=== PATIENT | female | born 1945 | race Caucasian/White ===

== ENCOUNTER 2020-04-28 16:44 | Emergency (ER) | payer OTHER ==
[~2020-04-28] VITALS: Ht 167.6 cm; Wt 59.0 kg
[2020-04-28 20:37] VITALS: BP 160/68
[2020-04-28] MEDS ORDERED: TETANUS-DIPTH-ACEL PERTUSSIS 0.5ML SYR Tdap IM ONE (21:00)
== END 2020-04-28 22:05 | disposition home or self-care (01) ==
LOC: ER 16:52
DX: S01.01XA Laceration without foreign body of scalp, initial encounter (principal); W19.XXXA Unspecified fall, initial encounter; Y93.89 Activity, other specified; Y92.89 Other specified places as the place of occurrence of the external cause; Y99.8 Other external cause status
CPT/HCPCS: 12002; 70450; 72125; 90471; 90715

== ENCOUNTER 2020-06-09 11:22 | Inpatient (IN) | payer OTHER ==
[~2020-06-09] VITALS: Ht 170.2 cm; Wt 67.0 kg
[2020-06-09] MEDS ORDERED: methylPREDNISolone SOD SUCC 125 MG/2 ML VL IV ONE (15:45)
[2020-06-09 16:50] LABS: Albumin 3.8 g/dL (3.4-5.0); Anion Gap 9 (5-15); Blood Urea Nitrogen 20 mg/dL (7-18); Calcium 8.4 mg/dL (8.5-10.1); Carbon Dioxide 22 mmol/L (21-32); Chloride 104 mmol/L (98-107); Glucose 114 mg/dL (74-106); Potassium 3.9 mmol/L (3.5-5.1); Sodium 135 mmol/L (136-145)
[2020-06-09 16:54] LABS: Alanine Aminotransferase 24 U/L (13-56); Alkaline Phosphatase 34 U/L (45-117); Aspartate Aminotransferase 42 U/L (15-37); Bilirubin, Total 0.4 mg/dL (0.2-1.0); GFR African American 66 mL/min; GFR Non-African American 55 mL/min; Total Protein 7.9 g/dL (6.4-8.2)
[2020-06-09 16:57] LABS: Basophils # (auto) 0 10 ^3/uL (0-0.2); Basophils % (auto) 0.4 % (0.0-2.0); Eosinophils # (auto) 0 10 ^3/uL (0-0.8); Hematocrit 37.2 % (36.0-46.0); Hemoglobin 12.7 g/dL (12.2-16.2); Lymphocytes # (auto) 0.4 10 ^3/uL (0.4-5.4); Lymphocytes % (auto) 12.5 % (10.0-50.0); Mean Corpuscular Hemoglobin 34.5 pg (28.0-32.0); Mean Corpuscular Hgb Conc. 34.1 g/dL (32.0-36.0); Mean Corpuscular Volume 101.1 fL (80.0-100.0); Monocytes # (auto) 0.3 10 ^3/uL (0-1.3); Monocytes % (auto) 7.3 % (0.0-12.0); Neutrophils # (auto) 2.8 10 ^3/uL (1.6-8.6); Neutrophils % (auto) 79.8 % (37.0-80.0); Platelet Count (auto) 126 10^3/uL (140-450); Red Blood Cells 3.68 10^6/uL (4.0-5.20); Red Cell Distribution Width 13.8 % (11.8-14.3); White Blood Cell 3.5 10^3/uL (4.4-10.8)
[2020-06-09 17:16] LABS: BUN/Creatinine Ratio 19.2
[2020-06-09] MEDS ORDERED: SODIUM CHLORIDE 0.9% 1,000 ML IV ONE (18:45)
[2020-06-09] MEDS ORDERED: MORPHINE SULF INJ 2 MG/ML SYRINGE 1ML IV PRN (18:45)
[2020-06-09] MEDS ORDERED: NITROGLYCERIN 0.4 MG SL TAB SL PRN (18:45)
[2020-06-09] MEDS ORDERED: DEXTROSE (50%) 50ML SYRG IV PRN (18:45)
[2020-06-09] MEDS ORDERED: ACETAMINOPHEN 325 MG TAB PO PRN (20:45)
[2020-06-10] MEDS: ACCU-CHEK COMFORT CURVE STRIP VI SCH ×4 (00:25→17:06)
[2020-06-10] MEDS: ASCORBIC ACID 500 MG TAB PO SCH ×2 (00:25→10:50)
[2020-06-10] MEDS: InsuLIN REG 1unit/0.01ml Soln (100units/ml) SC SCH ×4 (00:33→17:00)
[2020-06-10 00:40] VITALS: BP 105/64
[2020-06-10 05:14] VITALS: BP 99/60
[2020-06-10 07:33] LABS: BUN/Creatinine Ratio 27.5; Calcium 8.2 mg/dL (8.5-10.1); Potassium 3.5 mmol/L (3.5-5.1)
[2020-06-10 07:34] LABS: Basophils # (auto) 0 10 ^3/uL (0-0.2); Eosinophils # (auto) 0 10 ^3/uL (0-0.8); Hematocrit 35.4 % (36.0-46.0); Hemoglobin 11.9 g/dL (12.2-16.2); Lymphocytes # (auto) 0.4 10 ^3/uL (0.4-5.4); Monocytes # (auto) 0.1 10 ^3/uL (0-1.3); Red Cell Distribution Width 14.1 % (11.8-14.3)
[2020-06-10 07:36] LABS: Basophils % (auto) 0.2 % (0.0-2.0); Lymphocytes % (auto) 12.8 % (10.0-50.0); Mean Corpuscular Hemoglobin 34.6 pg (28.0-32.0); Mean Corpuscular Hgb Conc. 33.7 g/dL (32.0-36.0); Mean Corpuscular Volume 102.6 fL (80.0-100.0); Monocytes % (auto) 3.6 % (0.0-12.0); Neutrophils # (auto) 2.9 10 ^3/uL (1.6-8.6); Neutrophils % (auto) 83.4 % (37.0-80.0); Nucleated Red Blood Cells % 0.5 %; Platelet Count (auto) 129 10^3/uL (140-450); Red Blood Cells 3.45 10^6/uL (4.0-5.20); White Blood Cell 3.5 10^3/uL (4.4-10.8)
[2020-06-10 08:00] VITALS: BP 105/61
[2020-06-10] MEDS ORDERED: ZINC SULFATE 220mg CAP or TAB PO SCH (10:00)
[2020-06-10] MEDS ORDERED: CHOLECALCIFEROL (VITD3) 2,000 UNIT CAP PO SCH (10:00)
[2020-06-10] MEDS ORDERED: AZITHROMYCIN 500MG/ 250ML 250 ML IV SCH (10:00)
[2020-06-10] MEDS ORDERED: DexAMETHasone INJECTION 10 MG in D5W 5% 50 ML IV SCH (10:00)
[2020-06-10] MEDS ORDERED: ALBUTEROL SULF HFA 90MCG INH 200DOSE IN SCH (14:00)
[2020-06-10 17:33] VITALS: BP 105/61
== END 2020-06-10 19:39 | disposition home or self-care (01) | DRG 177 ==
LOC: ER 11:22 → OVERFLOW 18:46 → TELE-WESTW 23:38
PROVIDERS: ADMIT Internal Medicine; ATTEND Internal Medicine
DX: U07.1 COVID-19 (principal); J12.89 Other viral pneumonia; N17.9 Acute kidney failure, unspecified; M79.10 Myalgia, unspecified site; N18.30 Chronic kidney disease, stage 3 unspecified; Z90.710 Acquired absence of both cervix and uterus; E78.5 Hyperlipidemia, unspecified
CPT/HCPCS: 36415; 70450; 71045; 80048; 80053; 82728; 82962; 84484; 85025; 85379; 86141; 87426; 93005; 96365; G0378; J1100; J1815; J7060

== ENCOUNTER 2024-12-17 13:18 | Inpatient (IN) | payer OTHER ==
[~2024-12-17] VITALS: Ht 170.2 cm; Wt 69.0 kg
--- NOTE | 2024-12-17 13:37 | ED.PDOC ---
History of Present Illness HPI Comments 79 year old female with a history of high lipids was BIB Daughter for the c/c of Generalized Weakness with associated N/V/D, and Decreased appetite. Daughter states that pt has been feeling weak for the past few days, but has since worsened today with no alleviating factors at this time. Pt notes of prior Ca taract, Hernia Repair, and Hysterectomy Surgeries. No other symptoms or modifying factors reported at this time. 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 History Family History Family History: Reviewed,noncontributory to illness, No family hx of Cancer, No family hx of DM, No family hx of Heart danika, No family hx of HTN, No family hx ofKidney danika, No family hx of Liver danika, No family hx of Lung danika, No family hx of Stroke Social History Smoker: Non-Smoker Alcohol: Denies ETOH Use Drugs: Denies Drug Use Lives In: Home Constitutional: reports: weakness; denies: chills, diaphoresis, fatigue, fever, malaise, sweats, others EENTM: denies: blurred vision, double vision, ear bleeding, ear discharge, ear drainage, ear pain, ear ringing, eye pain, eye redness, hearing loss, mouth pain, mouth swelling, nasal discharge, nose bleeding, nose congestion, nose pain, photophobia, tearing, throat pain, throat swelling, voice changes, others Respiratory: denies: cough, hemoptysis, orthopnea, SOB at rest, shortness of breath, SOB with excertion, stridor, wheezing, others Cardiovascular: denies: chest pain, dizzy spells, diaphoresis, Dyspnea on exertion, edema, irregular heart beat, left arm pain, lightheadedness, palpitations, PND, syncope, others Gastrointestinal: reports: nausea, vomiting; denies: abdomen distended, abdominal pain, blood streaked bowels, constipated, diarrhea, dysphagia, difficulty swallowing, hematemesis, melena, poor appetite, poor fluid intake, rectal bleeding, rectal pain, others Genitourinary: denies: abnormal vagina bleeding, burning, dyspareunia, dysuria, flank pain, frequency, hematuria, incontinence, pain, , vagina discharge, urgency, others Neurological: denies: dizziness, fainting, headache, left sided numbness, left sided weakness, numbness, paresthesia, pre-existing deficit, right sided numbness, right sided weakness, seizure, speech problems, tingling, tremors, weakness, others Musculoskeletal: denies: back pain, gout, joint pain, joint swelling, muscle pain, muscle stiffness, neck pain, others Integumetry: denies: bruises, change in color, change in hair/nails, dryness, laceration, lesions, lumps, rash, wounds, others Allergic/Immunocompromised: denies: Difficulty Healing, Frequent Infections, Hives, Itching, others Hematologic/Lymphatic: denies: anemia, blood clots, easy bleeding, easy bruising, swollen glands, others Endocrine: denies: excessive hunger, excessive sweating, excessive thirst, excessive urination, flushing, intolerance to cold, intolerance to heat, unexplained weight gain, unexplained weight loss, others Psychiatric: denies: anxiety, bipolar disorder, depression, hopeless, panic disorder, schizophrenia, sleepless, suicidal, others All Other Systems: Reviewed and Negative Physical Exam General Appearance: Moderate Distress HEENT: Normal ENT Inspection, Pharynx Normal, TMs Normal Neck: Full Range of Motion, Non-Tender, Normal, Normal Inspection Respiratory: Chest Non-Tender, Lungs Clear, No Accessory Muscle Use, No Respiratory Distress, Normal Breath Sounds Cardiovascular: No Edema, No JVD, No Murmur, No Gallop, Normal Peripheral Pulses, Regular Rate/Rhythm Breast Exam: Deferred Gastrointestinal: Diffuse, No Organomegaly, No Pulsatile Mass, Normal Bowel Sounds, Soft, Tenderness Genitalia: Deferred Pelvic: Deferred Rectal: Deferred Extremities: No calf tenderness, Normal capillary refill, No pedal edema Musculoskeletal : Apperance: Normal Neurologic: Alert, dredging inspector II-XII nml as Tested, Motor Weakness, Normal Affect, Normal Mood, No Sensory Deficits Cerebellar Function: Normal Reflexes: Normal Skin: Dry, Normal Color, Warm Lymphatic: No Adenopathy Was a procedure done? Was a procedure done?: No EKG EKG : Pulse Rate (adult): 102 [place]mage: Normal Cardiac Rhythm: ST Block: None ST: Nonsp Differential Dx Considerations may include: Generalized weakness, electrolyte imbalance, UTI, dehydration, diverticulitis, cholelithiasis X-Ray, Labs, Meds, VS Vital Signs Date Time Temp Pulse Resp B/P (MAP) Pulse Ox O2 Delivery O2 Flow Rate FiO2 12/17/24 15:11 92 18 92 Room Air* 0 21 12/17/24 15:10 98.9 92 18 100/63 (75) 92 98.9 12/17/24 13:50 99.3 111 16 131/63 (85) 99 99.3 12/17/24 13:45 102 Lab Test 12/17/24 14:36 12/17/24 13:31 Range/Units White Blood Count Pending Red Blood Count Pending Hemoglobin Pending Hematocrit Pending Mean Corpuscular Volume Pending Mean Corpuscular Hemoglobin Pending Mean Corpuscular Hemoglobin Concent Pending Red Cell Distribution Width Pending Platelet Count Pending Mean Platelet Volume Pending Neutrophils (%) (Auto) Pending Lymphocytes (%) (Auto) Pending Monocytes (%) (Auto) Pending Basophils (%) (Auto) Pending Neutrophils # (Auto) Pending Lymphocytes # (Auto) Pending Monocytes # (Auto) Pending Sodium Level 138 136-145 mmol/L Potassium Level 3.8 3.5-5.1 mmol/L Chloride Level 102 98-107 mmol/L Carbon Dioxide Level 23 20-31 mmol/L Anion Gap 13 5-15 Blood Urea Nitrogen 18 9-23 mg/dL Creatinine 1.28 H 0.550-1.02 mg/dL Glomerular Filtration Rate Calc 42 >90 mL/min BUN/Creatinine Ratio 14.1 10.0-20.0 Serum Glucose 159 H 74-106 mg/dL Calcium Level 9.9 8.7-10.4 mg/dL Total Bilirubin 0.7 0.2-1.0 mg/dL Aspartate Amino Transferase (AST) 21 <34 U/L Alanine Aminotransferase (ALT) 11 7-40 U/L Alkaline Phosphatase 43 L 46-116 U/L Total Protein 8.1 5.7-8.2 g/dL Albumin 5.2 H 3.2-4.8 g/dL POC Glucose 157 H 70-106 mg/dl Current Medications Medications (Trade) Dose Ordered Sig/Brianda Route Start Time Stop Time Status Last Admin Sodium Chloride 1,000 ml @ 1,000 mls/hr Q1H ONCE IV 12/17/24 13:45 12/17/24 14:44 DC 12/17/24 15:07 IMPRESSION: Cholelithiasis, hydropic/ distended gallbladder with evidence of choledocholithiasis and pericholecystic stranding, concerning for cholecystitis. Recommend GI consultation, MRCP and HIDA scan to further evaluate biliary obstruction/cholecystitis. The sigmoid colon is folded upon itself a single air-fluid level. No evidence for bowel obstruction. Recommend GI consultation to exclude any type of obstructive process. Colonic diverticular disease. Atherosclerotic disease. Other findings as described. We ordered C diff testing secondary to the diarrhea The patient is being admitted at this time The chemistry panel is within normal limits The CBC is pending at this time IV Hep-Lock was established and the patient was given a bolus of normal saline The patient was given morphine 4 mg IV push for the pain The patient was given Zofran 4 mg IV push for the nausea The patient is being admitted at this time Images Reviewed?: Images reviewed and evaluated by me Time of 1ST Reevaluation: 14:04 Reevaluation 1ST: Unchanged Patient Education/Counseling: Diagnosis, Treatment, Prognosis Family Education/Counseling: Diagnosis, Treatment, Prognosis SEPSIS Sepsis Screen Physician Orders Urinalysis (12/17/24 13:36) Heplock Iv (12/17/24 13:36) Gymnastic Teacher (12/17/24 13:36) Blood Pressure (12/17/24 13:36) Pulse Oximetry (12/17/24 13:36) Electrocardigram (12/17/24 13:36) Ct Ab Pel Wo Con-No Oral Or Iv (12/17/24 13:36) Clostridium Difficile Toxin (12/17/24 13:44) Vital Signs Date Time Temp Pulse Resp B/P (MAP) Pulse Ox O2 Delivery O2 Flow Rate FiO2 12/17/24 15:11 92 18 92 Room Air* 0 21 12/17/24 15:10 98.9 92 18 100/63 (75) 92 98.9 12/17/24 13:50 99.3 111 16 131/63 (85) 99 99.3 12/17/24 13:45 102 Laboratory Tests Test 12/17/24 14:36 White Blood Count Pending Medications Medications Dose Ordered Sig/Brianda Route Start Time Stop Time Status Last Admin Dose Admin Sodium Chloride 1,000 ml @ 1,000 mls/hr Q1H ONCE IV 12/17/24 13:45 12/17/24 14:44 DC 12/17/24 15:07 Departure 1 Departure Time of Disposition: 17:13 Impression: Primary Impression: Intractable abdominal pain Additional Impressions: Cholelithiasis Qualified Codes: K80.00 - Calculus of gallbladder with acute cholecystitis without obstruction Generalized weakness Disposition: ADMITTED INPATIENT Admit to: Med Surg Condition: Fair e-Prescriptions Unable to Obtain Active Prescriptions or Reported Meds Critical Care Note Critical Care Time?: No Stability Stability form required: Yes Unstable for transfer: ED Physician Assesment (Clinical assesment) Heart Score Heart Score: Heart Score Response (Comments) Value History N/A 0 EKG N/A 0 Age N/A 0 Risk Factors N/A 0 Troponin N/A 0 Total 0 I personally scribed for ESTER STUBBS MD (NINA) on 12/17/24 at 13:37. Electronically submitted by Ellis Lira ([employer]). I personally scribed for ESTER STUBBS MD (NINA) on 12/17/24 at 14:42. Electronically submitted by Ellis Lira ([employer]). I personally scribed for ESTER STUBBS MD ([email or web address]) on 12/17/24 at 15:01. Electronically submitted by Ellis Lira ([employer]). ESTER STUBBS MD Dec 17, 2024 13:37
--- NOTE | 2024-12-17 14:40 | DVH ---
Indication: pain and weakness Technique: CT axial images of the abdomen and pelvis are obtained without contrast. Coronal and sagit varinder reformats were obtained. Radiation Dose Information: CTDI volume is 6.55 mGy. Dose-length product is 343.35 mGy*cm Comparison: None FINDINGS: There is limited interpretation of the abdomen and pelvis without administration of intravenous contr ast. The lung bases demonstrate atelectasis. Coronary artery calcification disease. Adrenal glands, spleen, pancreas unremarkable in shape. Cholelithiasis. 3 mm calculus in the distal CBD region. 3 mm calculus near the proximal cBD/cystic d uct region. Distended gallbladder with mild pericholecystic stranding. Liver unremarkable in shape. Kidneys demonstrate hydronephrosis. No nephrolithiasis. Stomach is partially distended. Small bowel loops are normal in caliber. Colonic diverticular disease. No secondary signs for appendicitis. The sigmoid colon is folded upon i tself but there is no evidence for bowel obstruction. Aortic atherosclerotic disease. Bladder distended. No inguinal lymphadenopathy. No inguinal lymphadenopathy. Moderate thoracolumbar degenerative disc disease. IMPRESSION: Cholelithiasis, hydropic/ distended gallbladder with evidence of choledocholithiasis and pericholecys tic stranding, concerning for cholecystitis. Recommend GI consultation, MRCP and HIDA scan to furthe r evaluate biliary obstruction/cholecystitis. The sigmoid colon is folded upon itself a single air-fluid level. No evidence for bowel obstruction. Recommend GI consultation to exclude any type of obstructive process. Colonic diverticular disease. Atherosclerotic disease. Other findings as described.
[2024-12-17] MEDS: SODIUM CHLORIDE 0.9% 1,000 ML IV ONE (15:07)
[2024-12-17 15:11] VITALS: PULSE 92; RESP 18; O2SAT 92
[2024-12-17 15:18] LABS: Alanine Aminotransferase 11 U/L (7-40); Albumin 5.2 g/dL (3.2-4.8); Alkaline Phosphatase 43 U/L (46-116); Anion Gap 13 (5-15); Aspartate Aminotransferase 21 U/L (<34); BUN/Creatinine Ratio 14.1 (10.0-20.0); Blood Urea Nitrogen 18 mg/dL (9-23); Calcium 9.9 mg/dL (8.7-10.4); Carbon Dioxide 23 mmol/L (20-31); Chloride 102 mmol/L (98-107); Glucose 159 mg/dL (74-106); Potassium 3.8 mmol/L (3.5-5.1); Sodium 138 mmol/L (136-145); Total Protein 8.1 g/dL (5.7-8.2)
[2024-12-17 15:19] LABS: Bilirubin, Total 0.7 mg/dL (0.2-1.0)
[2024-12-17] MEDS ORDERED: MORPHINE SULFATE INJ 2 MG/ml SYRG IV PRN ×2 (17:00)
[2024-12-17] MEDS ORDERED: NITROGLYCERIN 0.4 MG SL TAB SL PRN (17:00)
[2024-12-17] MEDS: SODIUM CHLORIDE 0.9% 1,000 ML IV SCH (17:00)
[2024-12-17] MEDS ORDERED: HYDROcodone-ACET 5/325MG TAB PO PRN (17:00)
[2024-12-17 17:10] LABS: Basophils # (auto) 0 10 ^3/uL (0-0.2); Basophils % (auto) 0.3 % (0.0-2.0); Eosinophils # (auto) 0 10 ^3/uL (0-0.8); Hemoglobin 12.4 g/dL (12.2-16.2); Lymphocytes # (auto) 0.6 10 ^3/uL (0.4-5.4); Lymphocytes % (auto) 8.7 % (10.0-50.0); Mean Corpuscular Hemoglobin 34.9 pg (28.0-32.0); Mean Corpuscular Hgb Conc. 34.4 g/dL (32.0-36.0); Mean Corpuscular Volume 101.6 fL (80.0-100.0); Monocytes # (auto) 0.8 10 ^3/uL (0-1.3); Monocytes % (auto) 10.9 % (0.0-12.0); Neutrophils # (auto) 5.7 10 ^3/uL (1.6-8.6); Neutrophils % (auto) 80.1 % (37.0-80.0); Nucleated Red Blood Cells % 0.1 %; Platelet Count (auto) 231 10^3/uL (140-450); Red Blood Cells 3.55 10^6/uL (4.0-5.20); Red Cell Distribution Width 13.9 % (11.8-14.3); White Blood Cell 7.1 10^3/uL (4.4-10.8)
--- NOTE | 2024-12-17 19:55 | DVH ---
Procedure: NM NM HIDA SCAN Exam Date: 12/17/2024 05:53 PM Clinical History: Incidental finding of cholelithiasis/acute cholecystitis Comparison Study: None Nuclear Medicine Hepatobiliary Scan. Technique: Following the intravenous administration of 5.1 mCi of technetium 99m labeled Choletec multiple plana r abdominal planar images were obtained in anterior projection in 5 minute intervals for45 minutes . Right lateral images were obtained at 45 minutes after injection. Findings: The liver appears grossly normal in size. There is no abnormal persistence of the cardiac or blood po ol activity. There is prompt visualization of the gallbladder and excretion of activity into the smal l bowel. Impression: 1. Unremarkable hepatobiliary study without evidence of acute cholecystitis. 2. Gallbladder and small bowel visualized by 60 minutes.
[2024-12-17 23:37] VITALS: BP 95/65; PULSE 82; RESP 17; TEMP 100.5; O2SAT 96
[2024-12-18] VITALS (9 sets, daily range): BP systolic 108–128; BP diastolic 55–74; PULSE 65–91; RESP 16–17; TEMP 97–101; O2SAT 90–96
--- NOTE | 2024-12-18 00:22 | DVHHP2 ---
PA OH SODA WORKER 12/18/24 0022: History of Present Illness Reason for Visit: Generalized weakness History of Present Illness 79-year-old female presents with complaints of generalized weakness. Also endorsing abdominal pain with nausea/vomiting, diarrhea. Patient has not been able to tolerate oral intake. At this time there are no complaints of fevers, chills, dizziness, shortness of breath, chest pain, palpitations, leg swelling. Patient admitted for further evaluation and treatment Cardiovascular: hyperipidemia ALCOHOL: none Drugs: None Lives: with Family Review of Systems Constitutional: Yes: Weakness; No: Fever, Chills, Sweats, Malaise, Other Eyes: No: Pain, Vision change, Conjunctivae inflammation, Eyelid inflammation, Other, Redness Respiratory: No: Cough, Dry, Shortness of breath, SOB with excertion, Wheezing, Hemoptysis, Pleuritic Pain, Sputum, Wheezing, Other Cardiovascular: No: Chest Pain, Palpitations, Orthopnea, Paroxysmal Noc. Dyspnea, Edema, Lt Headedness, Other Gastrointestinal: Nausea, Vomiting, Abdominal Pain, Diarrhea; No: Constipation, Melena, Hematochezia, Other Genitourinary: No Dysuria, No Frequency, No Incontinence, No Hematuria, No Retention, No Other Musculoskeletal: No: other, neck pain, shoulder pain, arm pain, back pain, hand pain, leg pain, foot pain Skin: No: Rash, Lesions, Jaundice, Bruising, Other Neurological: No: Weakness, Numbness, Incoordination, Change in speech, Confusion, Seizures, Other Allergies: Coded Allergies: Sulfa Antibiotics (Verified Allergy, Unknown, 12/17/24) Medications Current Medications Medications Dose Ordered Sig/Brianda Route Start Time Stop Time Status Last Admin Dose Admin Sodium Chloride 1,000 ml @ 120 mls/hr Q8H20M IV 12/17/24 17:00 Acetaminophen/ Hydrocodone Bitart 1 tab Q4HP PRN PO 12/17/24 17:00 Ondansetron HCl 4 mg Q4HP PRN IV 12/17/24 17:00 Enoxaparin Sodium 40 mg DAILY SC 12/18/24 10:00 Acetaminophen 650 mg Q6HP PRN PO 12/17/24 17:00 Morphine Sulfate 2 mg Q4HPRN PRN IV 12/17/24 17:00 Nitroglycerin 0.4 mg Q5MINP PRN SL 12/17/24 17:00 Morphine Sulfate 2 mg Q30M PRN IV 12/17/24 17:00 Exam Vital Signs Vital Signs Date Time Temp Pulse Resp B/P (MAP) Pulse Ox O2 Delivery O2 Flow Rate FiO2 12/17/24 20:10 100 18 132/75 (94) 96 12/17/24 15:11 Room Air* 0 21 12/17/24 15:10 98.9 98.9 General Appearance: Alert, Oriented X3, Cooperative, mild distress HEENT: Atraumatic, PERRLA, EOMI Respiratory: Clear to auscultation, Normal air movement Cardiovascular: Regular rate, Normal S1, Normal S2 Abdominal: Normal bowel sounds, Soft, No tenderness Extremities: No clubbing, No cyanosis, No edema Skin: No rashes Neuro: Normal speech Psych/Mental Status: Mental status NL, Mood NL Labs/Xrays Labs Test 12/17/24 14:36 12/17/24 13:31 Range/Units White Blood Count 7.1 4.4-10.8 10^3/uL Red Blood Count 3.55 L 4.0-5.20 10^6/uL Hemoglobin 12.4 12.2-16.2 g/dL Hematocrit 36.0 36.0-46.0 % Mean Corpuscular Volume 101.6 H 80.0-100.0 fL Mean Corpuscular Hemoglobin 34.9 H 28.0-32.0 pg Mean Corpuscular Hemoglobin Concent 34.4 32.0-36.0 g/dL Red Cell Distribution Width 13.9 11.8-14.3 % Platelet Count 231 140-450 10^3/uL Mean Platelet Volume 8.6 6.9-10.8 fL Neutrophils (%) (Auto) 80.1 H 37.0-80.0 % Lymphocytes (%) (Auto) 8.7 L 10.0-50.0 % Monocytes (%) (Auto) 10.9 0.0-12.0 % Eosinophils (%) (Auto) 0.0 0.0-7.0 % Basophils (%) (Auto) 0.3 0.0-2.0 % Neutrophils # (Auto) 5.7 1.6-8.6 10 ^3/uL Lymphocytes # (Auto) 0.6 0.4-5.4 10 ^3/uL Monocytes # (Auto) 0.8 0-1.3 10 ^3/uL Eosinophils # (Auto) 0 0-0.8 10 ^3/uL Basophils # (Auto) 0 0-0.2 10 ^3/uL Nucleated Red Blood Cells 0.1 % Sodium Level 138 136-145 mmol/L Potassium Level 3.8 3.5-5.1 mmol/L Chloride Level 102 98-107 mmol/L Carbon Dioxide Level 23 20-31 mmol/L Anion Gap 13 5-15 Blood Urea Nitrogen 18 9-23 mg/dL Creatinine 1.28 H 0.550-1.02 mg/dL Glomerular Filtration Rate Calc 42 >90 mL/min BUN/Creatinine Ratio 14.1 10.0-20.0 Serum Glucose 159 H 74-106 mg/dL Calcium Level 9.9 8.7-10.4 mg/dL Total Bilirubin 0.7 0.2-1.0 mg/dL Aspartate Amino Transferase (AST) 21 <34 U/L Alanine Aminotransferase (ALT) 11 7-40 U/L Alkaline Phosphatase 43 L 46-116 U/L Total Protein 8.1 5.7-8.2 g/dL Albumin 5.2 H 3.2-4.8 g/dL POC Glucose 157 H 70-106 mg/dl Assessment/Plan Assessment/Plan Abdominal Pain Cholelithiasis r/o Cholecystitis Diarrhea r/o CDIFF Plan Admit to telemetry Consult gastroenterology. HIDA scan. Clear liquid diet IVF. IV ABX Stool for CDIFF, leukocytes DVT ppx lovenox Plan discussed with: Patient, Daughter Date of Service: Dec 18, 2024 Billing Provider: POORNIMA CARRIZALES MD Common Visit Codes: NOT BILLABLE POORNIMA CARRIZALES MD 12/18/24 1759: Review of Systems Allergies: Coded Allergies: Sulfa Antibiotics (Verified Allergy, Unknown, 12/17/24) PA OH NP Dec 18, 2024 00:22 POORNIMA CARRIZALES MD Dec 18, 2024 17:59
[2024-12-18] MEDS: ACETAMINOPHEN 325 MG TAB PO PRN (00:52)
--- NOTE | 2024-12-18 04:39 | ECG ---
[facility] Test Date: 2024-12-17 Test Time: 13:38:32 Pat Name: EDILBERTO CASTLE [facility]: [facility] Gender: F Cycle Analyst: JAZMINE : 1945 Requested By: ESTER STUBBS Order Number: [id number] Reading MD: Isiah Branch Measurements Intervals [place] Rate: 102 P: 54 NC: 134 QRS: 7 QRSD: 88 T: 68 QT: 342 QTc: 446 Interpretive Statements Sinus tachycardia Abnormal R-wave progression, early transition ST depr, consider ischemia, anterolateral lds Electronically Signed On 12-18-2024 22:55:21 PDT by Isiah Branch Please click the below link to view image of tracing.
[2024-12-18 07:03] LABS: Basophils # (auto) 0 10 ^3/uL (0-0.2); Eosinophils # (auto) 0 10 ^3/uL (0-0.8); Hemoglobin 10.7 g/dL (12.2-16.2); Lymphocytes # (auto) 0.9 10 ^3/uL (0.4-5.4); Mean Corpuscular Hgb Conc. 34.3 g/dL (32.0-36.0)
[2024-12-18 07:05] LABS: Basophils % (auto) 0.2 % (0.0-2.0); Eosinophils % (auto) 0.1 % (0.0-7.0); Hematocrit 31.4 % (36.0-46.0); Lymphocytes % (auto) 14.4 % (10.0-50.0); Mean Corpuscular Hemoglobin 34.7 pg (28.0-32.0); Mean Corpuscular Volume 101.2 fL (80.0-100.0); Neutrophils # (auto) 4.6 10 ^3/uL (1.6-8.6); Neutrophils % (auto) 70.3 % (37.0-80.0); Platelet Count (auto) 179 10^3/uL (140-450); Red Cell Distribution Width 14.2 % (11.8-14.3); White Blood Cell 6.5 10^3/uL (4.4-10.8)
[2024-12-18 07:06] LABS: Alanine Aminotransferase 11 U/L (7-40); Anion Gap 11 (5-15); BUN/Creatinine Ratio 19.8 (10.0-20.0); Blood Urea Nitrogen 18 mg/dL (9-23); Carbon Dioxide 24 mmol/L (20-31); Chloride 105 mmol/L (98-107); Sodium 140 mmol/L (136-145); Total Protein 6.9 g/dL (5.7-8.2)
[2024-12-18 07:07] LABS: Albumin 4.4 g/dL (3.2-4.8); Aspartate Aminotransferase 24 U/L (<34); Bilirubin, Total 0.6 mg/dL (0.2-1.0)
[2024-12-18 07:08] LABS: Alkaline Phosphatase 34 U/L (46-116); Calcium 8.3 mg/dL (8.7-10.4); Glucose 118 mg/dL (74-106); Potassium 3.5 mmol/L (3.5-5.1)
[2024-12-18] MEDS: ENOXAPARIN SOD 40 MG/0.4 ML SYRINGE SC SCH (10:04)
--- NOTE | 2024-12-18 13:27 | DVHINCON2 ---
GI Consult Consult Note GI consult note Date of Consultation: 12/18/2024 Chief Complaint: Diarrhea rule out C diff Referring Physician: Dr. Ricks H&P: 79-year-old female presented to ER with complains of generalized weakness Patient also complaining of nausea vomiting and diarrhea. Patient has severe diarrhea per patient and daughter at bedside giving history, for the last three days, multiple episodes. Denies melena or red blood in stool. No abdominal pain Patient was on a recent road trip to [place]. But no family members are sick at this time Denies recent antibiotic use Last colonoscopy more than 10 years ago Patient complains of chronic cough Past Medical History: Hyperlipidemia Past Surgical History: Denies Social History: NO smoking, drinking ETOH and use of illegal drugs. Family History: Noncontributory Review of Systems: Constitutional: no fever, chill, weight loss HEENT: no eye pain, no hearing loss, no oral lesion, no scleral icterus Heart: no chest pain, no chest pressure Lung: +cough, no dyspnea with exertion Abdomen: see HPI Physical exam: General: NAD, AAOX3 Chest: Normal size and shape, no tenderness, lung jennings clear to auscultation and percussion, nonlabored breathing. Heart: RRR, no murmur Abdomen: non-distended, no tenderness to palpation, +BS Labs: Labs Test 12/18/24 06:15 12/17/24 13:31 Range/Units White Blood Count 6.5 4.4-10.8 10^3/uL Red Blood Count 3.10 L 4.0-5.20 10^6/uL Hemoglobin 10.7 L 12.2-16.2 g/dL Hematocrit 31.4 #L 36.0-46.0 % Mean Corpuscular Volume 101.2 H 80.0-100.0 fL Mean Corpuscular Hemoglobin 34.7 H 28.0-32.0 pg Mean Corpuscular Hemoglobin Concent 34.3 32.0-36.0 g/dL Red Cell Distribution Width 14.2 11.8-14.3 % Platelet Count 179 140-450 10^3/uL Mean Platelet Volume 8.1 6.9-10.8 fL Neutrophils (%) (Auto) 70.3 37.0-80.0 % Lymphocytes (%) (Auto) 14.4 10.0-50.0 % Monocytes (%) (Auto) 15.0 H 0.0-12.0 % Eosinophils (%) (Auto) 0.1 0.0-7.0 % Basophils (%) (Auto) 0.2 0.0-2.0 % Neutrophils # (Auto) 4.6 1.6-8.6 10 ^3/uL Lymphocytes # (Auto) 0.9 0.4-5.4 10 ^3/uL Monocytes # (Auto) 1.0 0-1.3 10 ^3/uL Eosinophils # (Auto) 0 0-0.8 10 ^3/uL Basophils # (Auto) 0 0-0.2 10 ^3/uL Nucleated Red Blood Cells 0.0 % Sodium Level 140 136-145 mmol/L Potassium Level 3.5 3.5-5.1 mmol/L Chloride Level 105 98-107 mmol/L Carbon Dioxide Level 24 20-31 mmol/L Anion Gap 11 5-15 Blood Urea Nitrogen 18 9-23 mg/dL Creatinine 0.91 0.550-1.02 mg/dL Glomerular Filtration Rate Calc 63 >90 mL/min BUN/Creatinine Ratio 19.8 10.0-20.0 Serum Glucose 118 H 74-106 mg/dL Calcium Level 8.3 L 8.7-10.4 mg/dL Total Bilirubin 0.6 0.2-1.0 mg/dL Aspartate Amino Transferase (AST) 24 <34 U/L Alanine Aminotransferase (ALT) 11 7-40 U/L Alkaline Phosphatase 34 L 46-116 U/L Total Protein 6.9 5.7-8.2 g/dL Albumin 4.4 3.2-4.8 g/dL POC Glucose 157 H 70-106 mg/dl Imaging: CT abdomen pelvis IMPRESSION: Cholelithiasis, hydropic/ distended gallbladder with evidence of choledocholithiasis and pericholecystic stranding, concerning for cholecystitis. Recommend GI consultation, MRCP and HIDA scan to further evaluate biliary obstruction/cholecystitis. The sigmoid colon is folded upon itself a single air-fluid level. No evidence for bowel obstruction. Recommend GI consultation to exclude any type of obstr uctive process. Colonic diverticular disease. Atherosclerotic disease. Other findings as described. HIDA scan Impression: 1. Unremarkable hepatobiliary study without evidence of acute cholecystitis. 2. Gallbladder and small bowel visualized by 60 minutes. Assessment: Diarrhea Cholelithiasis possible choledocholithiasis Plan: Discussed with Dr. Neil Stool for C diff, WBC and bacterial culture Levaquin and Flagyl Monitor lab Recommend MRCP when patient is stable Patient may require ERCP if choledocholithiasis We will continue to follow patient Plan discussed with patient and daughter Thank you for this consult Date of Service: Dec 18, 2024 Billing Provider: CANDIDO BURNETT Common Visit Codes: CONSULT ONLY Consultation Codes: [id number] CONSULT <60MIN CANDIDO BURNETT Dec 18, 2024 13:27
[2024-12-18] MEDS: levoFLOXacin 500MG 100 ML IV SCH (13:58)
[2024-12-18] MEDS: metroNIDAZOLE 500MG/100ML 100 ML IV SCH (16:07)
--- NOTE | 2024-12-18 16:37 | DVH ---
PROCEDURE: MRI MRCP MRI Indication: to rule out choledocholithiasis COMPARISON: 12/17/2024 CT abdomen, HIDA scan from 12/17/2024 TECHNIQUE: Multiplanar multisequence images of the abdomen are obtianed per MRCP protocol. FINDINGS: Examination degraded by motion. Hydropic/ distended gallbladder with pericholecystic edema. Cholelith iasis. There are calculi within the cystic duct. The common bile duct measures approximately 7 mm in diameter. Distal CBD calculi measuring up to 5 mm. Pancreatic duct normal in caliber measuring 2 mm. Mild dilatation intrahepatic ducts up to 5 mm. Kidneys demonstrate no hydronephrosis. Spleen and pancreas unremarkable in shape. Hepatic cysts measu ring up to 8 mm. IMPRESSION: Examination degraded by motion. Findings are most suggestive of calculus cholecystitis with markedly distended gallbladder, perichole cystic /gallbladder wall edema, obstructing cystic duct calculi. Recommend surgical consultation for further management. Choledocholithiasis with calculi measuring up to 5 mm
[2024-12-19] VITALS (8 sets, daily range): BP systolic 104–122; BP diastolic 53–63; PULSE 74–86; RESP 14–20; TEMP 97–98.5; O2SAT 91–97
[2024-12-19 07:27] LABS: Alanine Aminotransferase 13 U/L (7-40); Albumin 3.8 g/dL (3.2-4.8); Alkaline Phosphatase 31 U/L (46-116); Anion Gap 10 (5-15); Aspartate Aminotransferase 28 U/L (<34); Basophils # (auto) 0 10 ^3/uL (0-0.2); Basophils % (auto) 0.3 % (0.0-2.0); Bilirubin, Total 0.6 mg/dL (0.2-1.0); Blood Urea Nitrogen 12 mg/dL (9-23); Calcium 8.2 mg/dL (8.7-10.4); Carbon Dioxide 24 mmol/L (20-31); Chloride 107 mmol/L (98-107); Eosinophils # (auto) 0 10 ^3/uL (0-0.8); Eosinophils % (auto) 0.1 % (0.0-7.0); Glucose 97 mg/dL (74-106); Hematocrit 27.7 % (36.0-46.0); Hemoglobin 9.4 g/dL (12.2-16.2); Lymphocytes % (auto) 18.3 % (10.0-50.0); Mean Corpuscular Hemoglobin 33.8 pg (28.0-32.0); Mean Corpuscular Hgb Conc. 33.8 g/dL (32.0-36.0); Monocytes # (auto) 0.9 10 ^3/uL (0-1.3); Monocytes % (auto) 15.7 % (0.0-12.0); Neutrophils # (auto) 3.6 10 ^3/uL (1.6-8.6); Neutrophils % (auto) 65.6 % (37.0-80.0); Platelet Count (auto) 160 10^3/uL (140-450); Potassium 2.9 mmol/L (3.5-5.1); Red Blood Cells 2.77 10^6/uL (4.0-5.20); Sodium 141 mmol/L (136-145); White Blood Cell 5.5 10^3/uL (4.4-10.8)
[2024-12-19] MEDS ORDERED: ALEN70TA74 PO (09:25)
[2024-12-19] MEDS ORDERED: ATOR20TA50 PO (09:25)
[2024-12-19] MEDS ORDERED: METH2.5T PO (09:25)
[2024-12-19] MEDS ORDERED: POTASSIUM CHL 20 Meq TABLET PO ONE (12:30)
[2024-12-19 12:53] LABS: Urine Bacteria FEW /hpf (None Seen); Urine Blood 1+ /uL (Negative); Urine Clarity Turbid (Clear); Urine Color Light-Yellow (Yellow); Urine Mucus FEW (None Seen); Urine Protein, UAD TRACE (Negative); Urine Specific Gravity 1.012 (1.001-1.035); Urine Squamous Epithelial Cell FEW /hpf (<5); Urine Urobilinogen Normal (Negative); Urine WBC 34 /HPF (0-5); Urine pH 5.5 (5.0-9.0)
[2024-12-19] MEDS: POTASSIUM CHL 20MEQ/100ML 100 ML IV SCH (13:00)
[2024-12-19] MEDS: ONDANSETRON HCL 4 MG/2 ML VIAL IV PRN (13:27)
--- NOTE | 2024-12-19 13:54 | DVHDS2 ---
Discharge Summary Date of Admission Dec 17, 2024 at 16:48 Date of Discharge: Dec 19, 2024 Labs/Diagnostic Data: Laboratory Results Test 12/19/24 13:33 12/19/24 12:17 12/19/24 06:32 12/18/24 10:33 Urine Color Light-yellow (Yellow) Urine Clarity Turbid (Clear) Urine pH 5.5 (5.0-9.0) Urine Specific Climax 1.012 (1.001-1.035) Urine Protein Trace (Negative) Urine Ketones 1+ (Negative) Urine Blood 1+ /uL (Negative) Urine Nitrite Negative (Negative) Urine Bilirubin Negative (Negative) Urine Urobilinogen Normal mg/dL (Negative) Urine Leukocyte Esterase 3+ /uL (Negative) Urine RBC 2 /hpf (0 - 4) Urine Microscopic WBC 34 /HPF (0-5) Urine Squamous Epithelial Cells Few /hpf (<5) Urine Bacteria Few /hpf (None Seen) Urine Mucus Few (None Seen) Urine Glucose Normal mg/dL (Normal) White Blood Count 5.5 10^3/uL (4.4-10.8) Red Blood Count 2.77 10^6/uL (4.0-5.20) Hemoglobin 9.4 g/dL (12.2-16.2) Hematocrit 27.7 % (36.0-46.0) Mean Corpuscular Volume 100.0 fL (80.0-100.0) Mean Corpuscular Hemoglobin 33.8 pg (28.0-32.0) Mean Corpuscular Hemoglobin Concent 33.8 g/dL (32.0-36.0) Red Cell Distribution Width 14.0 % (11.8-14.3) Platelet Count 160 10^3/uL (140-450) Mean Platelet Volume 8.5 fL (6.9-10.8) Neutrophils (%) (Auto) 65.6 % (37.0-80.0) Lymphocytes (%) (Auto) 18.3 % (10.0-50.0) Monocytes (%) (Auto) 15.7 % (0.0-12.0) Eosinophils (%) (Auto) 0.1 % (0.0-7.0) Basophils (%) (Auto) 0.3 % (0.0-2.0) Neutrophils # (Auto) 3.6 10 ^3/uL (1.6-8.6) Lymphocytes # (Auto) 1.0 10 ^3/uL (0.4-5.4) Monocytes # (Auto) 0.9 10 ^3/uL (0-1.3) Eosinophils # (Auto) 0 10 ^3/uL (0-0.8) Basophils # (Auto) 0 10 ^3/uL (0-0.2) Nucleated Red Blood Cells 0.0 % Sodium Level 141 mmol/L (136-145) Potassium Level 2.9 mmol/L (3.5-5.1) Chloride Level 107 mmol/L (98-107) Carbon Dioxide Level 24 mmol/L (20-31) Anion Gap 10 (5-15) Blood Urea Nitrogen 12 mg/dL (9-23) Creatinine 0.80 mg/dL (0.550-1.02) Glomerular Filtration Rate Calc 74 mL/min (>90) BUN/Creatinine Ratio 15.0 (10.0-20.0) Serum Glucose 97 mg/dL (74-106) Calcium Level 8.2 mg/dL (8.7-10.4) Magnesium Level 2.0 mg/dL (1.6-2.6) Total Bilirubin 0.6 mg/dL (0.2-1.0) Aspartate Amino Transferase (AST) 28 U/L (<34) Alanine Aminotransferase (ALT) 13 U/L (7-40) Alkaline Phosphatase 31 U/L (46-116) Total Protein 6.0 g/dL (5.7-8.2) Albumin 3.8 g/dL (3.2-4.8) Stool for White Cells Few Test 12/17/24 13:31 POC Glucose 157 mg/dl (70-106) Other Laboratory Tests 12/19/24 06:32 Brief Hx & Hospital Course: 79-year-old female who initially presented to the hospital with generalized weakness nausea and vomiting diarrhea found to have acute calculous cholecystitis as well as choledocholithiasis. Patient was seen by GI recommending higher level of care as we do not have availability of ERCP here. Patient needs higher level of care for ERCP as well as laparoscopic versus open cholecystectomy. Patient's hospital course was eventful for dry cough eventually COVID-19 was ordered as well as influenza a and B. Patient was being given IV fluids clear liquid diet and IV antibiotics. There is no family member at bedside but plan of care discussed with the bedside RN who will notify the family that patient is going to higher level of care all the paperwork has been signed correctional case manager has been notified. Currently understand and agreeable to plan. Condition at Discharge: Stable Final Diagnosis/Problems List 1. Abdominal pain 2. Diarrhea rule out C diff 3. Acute calculous cholecystitis 4. Choledocholithiasis 5. Acute kidney injury suspected secondary to vasomotor nephropathy 6. Cough rule out COVID-19 and influenza a and B 7. Dyslipidemia 8. Osteoarthritis rheumatoid arthritis Discharge Disposition: Acute Care Facility SNF Discharge Will this Physician continue t: No Discharge Instruct/Medications Diet: See Comment Diet comment: NPO except meds Activity: See Comment Activity comment: As tolerated Follow Up/Referral: Follow up at higher level of care for ERCP by GI and follow up by cholecystectomy General surgery. Medications: As reconciled Discharge Statement: "Patient was advised to return to the ER or call 911 if any headaches, dizziness, shortness of breath, chest pain, abdominal pain, bleeding, fevers, or worsening of medical condition. Patient was counseled about treatment plan, medications, possible side effects, patientverbalized understanding. All questions were answered to the best of my ability. This discharge took greater then 30 minutes in planning, reviewing documentation, counseling the patient, and discussing with other team members." ASSESSMENT ASSESSMENT Assessment 1. Abdominal pain 2. Diarrhea rule out C diff 3. Acute calculous cholecystitis 4. Choledocholithiasis 5. Acute kidney injury suspected secondary to vasomotor nephropathy 6. Cough rule out COVID-19 and influenza a and B 7. Dyslipidemia 8. Osteoarthritis rheumatoid arthritis Date of Service: Dec 19, 2024 Billing Provider: POORNIMA CARRIZALES MD Common Visit Codes: NOT BILLABLE POORNIMA CARRIZALES MD Dec 19, 2024 13:54
[2024-12-19 14:03] LABS: COVID19 ANTIGEN SOFIA FIA NEGATIVE (NEGATIVE)
[2024-12-19 14:04] LABS: Rapid Influenza A Negative (Negative); Rapid Influenza B Negative (Negative)
--- NOTE | 2024-12-19 14:12 | DVH ---
EXAM: XY CHEST PORTABLE Indication: shortness of breath Technique: Single frontal view of the chest was obtained Comparison: CHEST PORTABLE on DOS: 06/09/20 FINDINGS: Lines and Tubes: None Lungs: No focal consolidation. Pleura: No effusion. No pneumothorax. Cardiomediastinal contours: Unremarkable. Atherosclerotic vascular calcifications of the thoracic ao rta are noted. Bones: No acute osseous abnormality. IMPRESSION: No acute cardiopulmonary disease.
--- NOTE | 2024-12-19 14:24 | DVHPN2 ---
Progress Note Date Seen: Dec 19, 2024 Resident Creating Document: SHANA PAULINO RESIDENT Medical Necessity Reason Pt with a Central, PICC or Fol: No Subjective Review of Systems Patient is 79 years old female who came with a complaint of abdominal pain and nausea and vomiting and diarrhea. Patient could not tolerate oral intake. Initial lab workup revealed hemoglobin 12.4, serum creatinine 1.28, UTI with leukocyte esterase 3+, urine WBC 34, bacteria few. CT abdomen and pelvis revealed- Cholelithiasis, hydropic/ distended gallbladder with evidence of choledocholithiasis and pericholecystic stranding, concerning for cholecystitis. MRCP revealed acute calculous cholecystitis with distended gallbladder, pericholecystic gallbladder wall edema, choledocholithiasis with a calculi measuring up to 5 mm. Patient was seen today at bedside Patient had fever today Patient reported loose motion has decreased Complained of nausea Hypokalemia replenished Pending stool for C diff toxin Pending transferred to higher level of care for possible ERCP Objective vital signs Vital Sign Date Time Temp Pulse Resp B/P (MAP) Pulse Ox O2 Delivery O2 Flow Rate FiO2 12/19/24 13:30 102.7 12/19/24 12:39 78 20 116/53 (74) 96 12/19/24 08:00 Room Air* 0 21 Total Intake and Output 12/18/24 12/18/24 12/19/24 15:00 23:00 07:00 Intake Total 100 ml 1520 ml 400 ml Balance 100 ml 1520 ml 400 ml medications Current Medications Medications Dose Ordered Sig/Brianda Route Start Time Stop Time Status Last Admin Dose Admin Sodium Chloride 1,000 ml @ 120 mls/hr Q8H20M IV 12/17/24 17:00 12/18/24 16:27 120 MLS/HR Acetaminophen/ Hydrocodone Bitart 1 tab Q4HP PRN PO 12/17/24 17:00 Ondansetron HCl 4 mg Q4HP PRN IV 12/17/24 17:00 12/19/24 13:27 4 MG Enoxaparin Sodium 40 mg DAILY SC 12/18/24 10:00 12/19/24 09:15 40 MG Acetaminophen 650 mg Q6HP PRN PO 12/17/24 17:00 12/19/24 13:30 650 MG Morphine Sulfate 2 mg Q4HPRN PRN IV 12/17/24 17:00 Nitroglycerin 0.4 mg Q5MINP PRN SL 12/17/24 17:00 Morphine Sulfate 2 mg Q30M PRN IV 12/17/24 17:00 Metronidazole 100 ml @ 100 mls/hr Q8HR IV 12/18/24 14:00 12/19/24 06:23 100 MLS/HR Levofloxacin/ Dextrose 100 ml @ 100 mls/hr DAILY IV 12/18/24 13:28 12/19/24 09:16 100 MLS/HR Potassium Chloride 100 ml @ 50 mls/hr Q2H IV 12/19/24 12:30 12/19/24 16:29 12/19/24 13:00 50 MLS/HR Guaifenesin/ Dextromethorphan 10 ml Q4HP PRN PO 12/19/24 13:15 laboratory and microbiology Laboratory Tests 12/19/24 06:32 Test 12/19/24 06:32 Range/Units Serum Glucose 97 74-106 mg/dL Problem List/Assessment/Plan Problem List/Assessment/Plan Assessment and plan Acute calculous cholecystitis with choledocholithiasis Suspected acute cholangitis Acute diarrhea, rule out C diff infection Acute abdominal pain WARREN likely due to VMN Dyslipidemia Events Patient had fever today Patient reported loose motion has decreased Complained of nausea Hypokalemia replenished Pending stool for C diff toxin Pending transferred to higher level of care for possible ERCP Plan Ordered blood culture Ordered meropenem Pending transferred to higher level of care for possible ERCP Continue IV antibiotics Continue IV fluid Pain management as per primary care team Monitor vitals Pending stool for C diff Plan discussed with Dr. Michelle Neil , nursing staff, Total time spent on patient evaluation, chart review, assessment and plan, discussion discussion >35 minutes Plan discussed with: Patient, Other (RN) SHANA PAULINO RESIDENT Dec 19, 2024 14:24
[2024-12-19] MEDS: guaiFENesin-DM 100/10mg/5ml SYR PO PRN (18:22)
[2024-12-19] MEDS: POTASSIUM CHL 20MEQ/100ML 100 ML IV ONE (21:48)
[2024-12-19] MEDS ORDERED: MEROPENEM 1GM IVPB 50 ML IV SCH (22:00)
== END 2024-12-19 22:02 | disposition short-term general hospital (02) | DRG 444 ==
LOC: ER 13:18 → OVERFLOW 16:48 → TELE-EAST 23:37
PROVIDERS: ADMIT Internal Medicine; ATTEND Internal Medicine
DX: K80.60 Calculus of gallbladder and bile duct with cholecystitis, unspecified, without obstruction (principal); N17.0 Acute kidney failure with tubular necrosis; A04.72 Enterocolitis due to Clostridium difficile, not specified as recurrent; E78.5 Hyperlipidemia, unspecified; Z20.822 Contact with and (suspected) exposure to COVID-19; M06.9 Rheumatoid arthritis, unspecified; E87.6 Hypokalemia; B96.89 Other specified bacterial agents as the cause of diseases classified elsewhere; Z88.2 Allergy status to sulfonamides; Z90.710 Acquired absence of both cervix and uterus; Z79.899 Other long term (current) drug therapy
CPT/HCPCS: 36415; 71045; 74176; 74181; 78226; 80053; 81001; 82962; 83735; 85025; 85048; 87040; 87045; 87426; 87427; 87493; 87804; 93005; 96360; 97110; 97116; 97163; 97530; G0378; J1956; J2405; J3480; J3490

== ENCOUNTER → 2025-03-01 | Day surgery (SDC) | payer OTHER ==
[~2025-03-01] VITALS: Ht 170.2 cm; Wt 68.0 kg
[~2025-03-01] MED LIST: ACETAMINOPHEN IV 1000 MG/100ML (10MG/ML) IV PRN; ALEN70TA74 PO; ATOR20TA50 PO; FOLI400T15 PO; HEPARIN SODIUM (PORCINE) 5000 UNITS/ML 1ML VIAL ONE; HYDROmorphone HCL 2 MG/ML VL/or syr IV PRN; HYDROmorphone HCL 2 MG/ML VL/or syr ONE; METH2.5T PO; ONDANSETRON HCL 4 MG/2 ML VIAL IV PRN; ONDANSETRON HCL 4 MG/2 ML VIAL ONE; PROPOFOL 10 MG/ML 20 ML IV ONE; ROCURONIUM 10MG/ML 10ML VIAL IV ONE; SUCCINYLCHOLINE CHLORIDE 20 MG/ML 10ML VIAL IV ONE; SUGAMMADEX 200mg/2ml Vial (100MG/ML) IV ONE; ceFAZolin 2 GM/D5W50ml 50 ML IV ONE; fentaNYL CITRATE 100 MCG/2 ML VL ONE; hydrALAZINE HCL 20 MG/ML VL IV PRN
[2025-03-01] MEDS: HEPARIN SODIUM (PORCINE) 5000 UNITS/ML 1ML VIAL SC ONE (09:45)
[2025-03-01] MEDS: BUPIVACAINE 0.5% MPF INJ 30ML SDV IJ ONE (11:20)
[2025-03-01] MEDS: LIDOCAINE 1% HCL (LOCAL ANESTH.) INJ 20ML MDV ONE (11:20)
[2025-03-01 12:02] VITALS: O2SAT 100
--- NOTE | 2025-03-01 12:43 | DVHOP ---
DATE OF SURGERY: 03/01/2025 PREOPERATIVE DIAGNOSES: * Cholelithiasis. * Choledocholithiasis. POSTOPERATIVE DIAGNOSES: * Cholelithiasis. * Choledocholithiasis. PROCEDURES: * Laparoscopic cholecystostomy. * Laparoscopic cholecystectomy. SURGEON: Refugio Low MD FAMILY CONSULTANT: None. ANESTHESIOLOGIST: Dr. Fishman. ANESTHESIA: General by means of endotracheal intubation. INTRAOPERATIVE FINDINGS: * Significant amount of adhesions involving omentum against the anterior abdominal wall involving a portion of the transverse colon. * Distended gallbladder with gallstones within. ESTIMATED BLOOD LOSS: Minimal. INTRAVENOUS FLUIDS: Per Anesthesia charting. URINE OUTPUT: Not recorded given Gilbert catheter was not inserted. DRAINS: None. IMPLANTS: Endoclips. SPECIMENS: Gallbladder. COMPLICATIONS: None other than difficult procedure secondary to above-mentioned intraoperative findings, adding complexity as well as time to an otherwise routine procedure. INDICATIONS FOR PROCEDURE: The patient is an 80-year-old female with cholelithiasis and choledocholithiasis undergoing ERCP with stent. The patient and primary care physician requested to have the gallbladder removed to prevent potential future complications. Therefore, she was recommended to undergo a laparoscopic possible open cholecystectomy. The patient was aware that the intraoperative findings will dictate the end result of the procedure and there are no guarantees for success or no complications. The procedure, risks, and benefits were explained in a detailed and extensive fashion. She was made aware of potential complications such as bleeding, infection, need for additional procedures, injury to internal organs, blood vessels, and/or nerves, among other less likely complications. The patient understood and agreed to proceed. DESCRIPTION OF PROCEDURE: The patient was taken to the operating room and placed in the dorsal decubitus position on the operating room table. Once adequate anesthesia was achieved, the abdomen was widely prepped and draped in usual sterile fashion. The patient received prophylactic antibiotic therapy as well as prophylactic heparin. My attention was directed towards the periumbilical region where local anesthesia consisting of 1% lidocaine/0.25% Marcaine was infiltrated. The abdominal wall was retracted anteriorly. A 5 mm supraumbilical incision was made with an 11 blade. A Veress needle was inserted into the abdominal cavity and pneumoperitoneum of 15 mmHg was achieved. The Veress needle was exchanged with 5 mm trocar and a 5 mm 30-degree laparoscope was inserted into the abdominal cavity. A thorough survey of the abdominal cavity did not reveal any evidence of injury or bleeding upon entry. There were adhesions involving the omentum against the anterior abdominal wall as well as a portion of the transverse colon on the right side of the abdomen. I was able to navigate around the adhesions gaining access to an adhesion-free right upper quadrant region. 5 mm trocars x2 were placed in the right upper quadrant region under direct laparoscopic visualization as well as with preemptive local anesthesia. The gallbladder was identified. It was retracted superiorly and anteriorly, revealing a physiologically distended gallbladder. The cystic duct was identified. It was circumferentially dissected and a critical view was obtained confirming that the structure dissected was the cystic duct. Three Endoclips were placed on the distal aspect of the cystic duct paying careful attention not to impinge on the common bile duct, two were placed proximally and the cystic duct was divided between clips with Endo Salvatore. The same was done with the artery except two endoclips were placed proximally, one was placed distally, and the cystic artery was divided between clips with Endo Salvatore. The gallbladder was then attentively dissected. However, it was extremely difficult given the limited space. Therefore, required a cholecystostomy to decompress the gallbladder. Decompression was achieved facilitating retraction and visualization for the gallbladder to be safely dissected. The gallbladder was carefully dissected from the gallbladder fossa with the paddle electrocautery device. It was placed in an Endo Catch bag and exteriorized via the epigastric trocar site. The 12 mm trocar was replaced. The liver was noted to have a small amount of oozing which was easily controlled with the electrocautery device. No further bleeding was noted. The area was copiously irrigated. All the fluid was evacuated. There was no evidence of active bleeding or injury. My attention was then directed towards the epigastric fascial defect which was closed with 1 Vicryl on a Palmer-Lois device in a [id number] fashion. The remaining laparoscopic equipment was removed from the patient as the pneumoperitoneum was evacuated. The wounds were washed and dried. The skin was closed with 4-0 Monocryl in a subcuticular fashion. Sterile dressings were applied. The patient tolerated well procedure. There were no complications. She was successfully extubated in the operating room and transferred to recovery room in stable condition. MD CANDIE Lopez/SAMINA/FCO TID: [id number] RECEIPT: [id number] [facility]
[2025-03-01 12:50] VITALS: O2SAT 95
[2025-03-01 14:47] VITALS: BP 152/76; PULSE 80; RESP 18
[2025-03-01 15:18] VITALS: O2SAT 95
== END | disposition home or self-care (01) ==
LOC: SUR 07:09
DX: K80.66 Calculus of gallbladder and bile duct with acute and chronic cholecystitis without obstruction (principal); K82.8 Other specified diseases of gallbladder; K66.0 Peritoneal adhesions (postprocedural) (postinfection)
CPT/HCPCS: 47562; 86850; 86900; 86901; 88304; J0330; J0690; J0694; J1100; J1171; J1644; J2003; J2405; J2704; J3010; J3490